=== PATIENT | female | born 1980 | race Hispanic/Latino ===

== ENCOUNTER → 2024-02-01 07:06 | Outpatient (REF) | payer OTHER, SELFPAY ==
[2024-02-01 08:00] LABS: ALT (SGPT) 18 U/L (0-35); AST (SGOT) 19 U/L (14-36); Albumin 4.5 g/dl (3.5-5.0); Alkaline Phosphatase 80 U/L (38-126); Blood Urea Nitrogen 18 mg/dl (7-17); Calcium 9.5 mg/dl (8.4-10.2); Carbon Dioxide 24 mmol/L (22-30); Chloride 105 mmol/L (98-107); Glucose 105 mg/dl (70-99); Potassium 4.7 mmol/L (3.5-5.1); Sodium 141 mmol/L (135-145); Total Bilirubin 0.3 mg/dl (0.2-1.3); Total Protein 7.3 g/dl (6.3-8.2); eGFR > 60.00
[2024-02-01 08:15] LABS: Vitamin D, 25-OH*** 28.8 ng/mL (30-80)
[2024-02-01 08:28] LABS: TSH Reflex To Free T4 2.94 uIU/ml (0.47-4.68)
[2024-02-01 09:08] LABS: Hematocrit 38.5 % (37.0-47.0); Hemoglobin 13.3 g/dL (12.0-16.0); Mean Corp Hgb Conc. 34.5 g/dL (33.0-37.0); Mean Corpuscular Volume 84.1 fL (81.0-99.0); Mean Platelet Volume 10.3 fL (7.4-10.4); Platelet Count 324 10^3/uL (130-400); Red Blood Cell Count 4.58 10^6/uL (4.20-5.40); Red Cell Dist. Width 13.5 % (11.5-14.5); White Blood Cell Count 8.9 10^3/uL (4.8-10.8)
== END ==
LOC: CLINIC 07:06
PROVIDERS: ATTENDING PHYSICIAN Nurse Practitioner Adult Health
DX: K59.09 Other constipation (principal); E05.00 Thyrotoxicosis with diffuse goiter without thyrotoxic crisis or storm; E55.9 Vitamin D deficiency, unspecified
CPT/HCPCS: 36415; 80053; 82306; 84443; 85027

== ENCOUNTER 2025-01-07 14:31 | Emergency (ER) | payer SELFPAY ==
[2025-01-07 14:36] VITALS: BP 146/98
[2025-01-07 15:16] LABS: Hematocrit 41.8 % (37.0-47.0); Hemoglobin 14.0 g/dL (12.0-16.0); Mean Corp Hgb Conc. 33.5 g/dL (33.0-37.0); Mean Corpuscular Volume 88.0 fL (81.0-99.0); Nucleated Red Blood Cells % 0 %; Platelet Count 322 10^3/uL (130-400); Red Cell Dist. Width 13.2 % (11.5-14.5)
[2025-01-07 15:18] LABS: Urine Character Clear (Clear)
[2025-01-07 15:25] LABS: HCG, Serum Qualitative Screen Negative
[2025-01-07 15:35] LABS: ALT (SGPT) 17 U/L (0-35); AST (SGOT) 18 U/L (14-36); Albumin 4.7 g/dl (3.5-5.0); Alkaline Phosphatase 76 U/L (38-126); Blood Urea Nitrogen 15 mg/dl (7-17); Calcium 9.5 mg/dl (8.4-10.2); Carbon Dioxide 21 mmol/L (22-30); Chloride 108 mmol/L (98-107); Glucose 100 mg/dl (70-99); Potassium 4.4 mmol/L (3.5-5.1); Sodium 139 mmol/L (135-145); Total Protein 8.0 g/dl (6.3-8.2); eGFR > 60.00
[2025-01-07 16:17] LABS: Urine Red Blood Cell 0-2 /HPF (0-2); Urine White Cell 0-2 /HPF (0-5)
--- NOTE | 2025-01-07 18:13 | ED.GENMED ---
History of Present Illness
General
Chief Complaint: Abdominal Pain
Time Seen by Provider: 01/07/25 18:13
History of Present Illness
History of Present Illness:
FOCUSED PAST MEDICAL HISTORY
- Thyroid disease
REVIEW OF OLD RECORDS
- No old records available for review in [facility]
Note:
CHIEF COMPLAINT(S)
Swelling and rash with associated pain.
HISTORY OF PRESENT ILLNESS
The patient is a 44-year-old female presenting with swelling, rash, and pain. The symptoms have reportedly worsened despite taking medication for inflammation in the past. The patient describes the swelling as occurring at the wrist, face, and back,
accompanied by itchiness. Additionally, she reports vomiting and diarrhea. She has noticed redness on her left wrist and has unspecified cold sensations. She was accompanied to the facility by a executive director who will also assist with transport home.
ADDITIONAL HISTORY OBTAINED FROM SOURCES OTHER THAN THE PATIENT
The patients executive director provided transportation to the medical facility.
SOCIAL DETERMINANTS AFFECTING HEALTH
The patient states she was accompanied to the appointment today and her executive director will help with transportation home if needed.
PHYSICAL EXAM
- General: Well appearing in no distress
- HEENT: Moist oral mucosa
- Cardiovascular: No murmurs, normal heart rate, regular rhythm, No chest wall tenderness
- Pulmonary: No respiratory distress, breath sounds are clear and equal
- Abdomen: Soft with no peritoneal signs, questionable if any diffuse tenderness, the abdomen is soft
- Neurologic: Excellent strength all extremities, no coordination deficits
- Psychiatric: Appropriate mental status, normal insight and judgement
- Extremities: Nontender, no edema, moves all extremities equally
- Skin: There is some patchy urticarial type of erythema noted over the distal left forearm, splotches over the back, and over the face
PROBLEM LIST
Acute:
1. Rash with accompanying swelling and itching.
2. Vomiting and diarrhea.
3. Pain likely due to inflammation.
PLAN
1. Administer diphenhydramine (Benadryl) for itchiness.
2. Provide ketorolac (Toradol) for inflammation-related pain.
3. Administer dexamethasone (Decadron) as a potent anti-inflammatory agent.
4. Initiate intravenous fluids.
5. Arrange for a computed tomography (CT) scan to evaluate the underlying cause of symptoms.
DIFFERENTIAL DIAGNOSIS
The Differential Diagnosis includes, in no particular order and is not limited to:
1. Allergic reaction
2. Autoimmune disorder
3. Infection-related rash
4. Dermatitis
5. Contact dermatitis
6. Viral exanthem
7. Urticaria
8. Angioedema
9. Gastroenteritis
10. Thyroid-related conditions
RADIOLOGY
- CT imaging obtained which I personally reviewed and agree with radiologist interpretation there is a ruptured left ovarian cyst which is small
LABS
- White count 14.1, normal renal function, normal transaminases, hCG negative, urinalysis shows blood but normal number of RBCs and WBCs
UPDATE
-SUMMARY OF ENCOUNTER
The patient is a 44-year-old female who presented to the emergency department with symptoms of swelling, rash, and pain, which have progressively worsened. The rash and swelling are noted on the wrist, face, and back, accompanied by itchiness,
vomiting, and diarrhea. The patient was managed with an anti-inflammatory regimen that includes administration of diphenhydramine for itchiness and ketorolac for pain relief, complemented by dexamethasone for its potent anti-inflammatory effects.
REASSESSMENT
On reassessment, the patient appears fairly comfortable. Further evaluation through a CT scan identified signs of a small ruptured ovarian cyst on the left side, identified as the likely cause of her pain.
PLAN
1. Contact information for a local coal wheeler will be provided to the patient for follow-up regarding the ovarian cyst.
2. Steroids will be added as a further anti-inflammatory agent to manage the rash and associated symptoms.
INDEPENDENT REVIEW OF LABS AND INTERPRETATION OF TESTS
My independent CT scan interpretation indicates signs of a small ruptured ovarian cyst on the left side.
FOLLOW-UP INSTRUCTIONS
The patient is advised to follow up with a local coal wheeler for further evaluation and management of the ovarian cyst.
MEDICATION RECONCILIATION
1. Diphenhydramine was administered for itchiness.
2. Ketorolac was provided for inflammation-related pain.
3. Dexamethasone was administered as a potent anti-inflammatory agent.
4. Prescription for additional steroids for further anti-inflammatory treatment.
MEDICAL DECISION MAKING
- Complexity of Data Reviewed: Chronic conditions affecting care include rash with swelling and itching, vomiting and diarrhea. Differential diagnosis includes allergic reactions, autoimmune disorders, infection-related rash, dermatitis, contact
dermatitis, viral exanthem, urticaria, angioedema, gastroenteritis, and thyroid-related conditions.
- Data:
- Category 1: The CT scan independently interpreted, indicating a small ruptured ovarian cyst as the likely cause of pain.
- Category 2: Clinical information was obtained from the patients executive director, who provided additional history and context.
- Risk: Prescription drug management initiated with the planned addition of steroids for inflammation control.
DIAGNOSIS
1. Rash with swelling and itching, possibly due to allergic reaction or dermatitis (L50.9).
2. Small ruptured ovarian cyst on the left side (N83.21).
Phy Exam
Physical Exam
Physical Exam:
See HPI
Course
Orders/Labs/Results
Orders:
Orders
01/07/25 14:41
Test Result ONCE
01/07/25 14:44
Complete Blood Count/With Diff Urgent
Comprehensive Metabolic Panel Urgent
HCG, Serum Qualitative Screen Urgent
Urinalysis Reflex To Culture Urgent
Date Specimen was Collected: 01/07/25
Time Specimen was Collected: 14:41
Urine Microscopic Reflex Cult Urgent
01/07/25 18:14
CT Abd/pelvis W Iv Cont Urgent
Comment:
Reason For Exam: WBC 14, worsening abd pain
01/07/25 18:27
0.9% Sodium Chloride 1000 ml [Nss] 1,000 ml IV BOLUS
Dexamethasone Sod Phosphate [Decadron] 10 mg IV NOW STA
Diphenhydramine [Benadryl] 25 mg IV NOW STA
Ketorolac [Toradol] 15 mg IV NOW STA
Abnormal Lab Results
01/07/25
14:44
WBC 14.1 H 10^3/uL
(4.8-10.8)
Absolute Neuts (auto) 10.2 H 10^3/uL
(1.4-6.5)
Chloride 108 H mmol/L
(98-107)
Carbon Dioxide 21 L mmol/L
(22-30)
Creatinine 0.5 L mg/dL
(0.6-1.0)
Glucose 100 H mg/dl
(70-99)
Urine Ketones 1+ A
(Negative)
Ur Occult Blood Reflex 3+ A
(Negative)
Urine Bacteria (Reflex) Few A
(Negative)
01/07/25 14:44
01/07/25 14:44
Vital Signs
Initial and Last Documented VS:
Initial Vital Signs
Temp Pulse Resp BP Pulse Ox
36.8 C 63 18 146/98 99
01/07/25 14:36 01/07/25 14:36 01/07/25 14:36 01/07/25 14:36 01/07/25 14:36
Last Documented Vital Signs
Temp Pulse Resp BP Pulse Ox
36.8 C 63 18 134/75 100
01/07/25 14:36 01/07/25 14:36 01/07/25 14:36 01/07/25 18:26 01/07/25 18:26
*Pulse Oximetry
SaO2: 99
Oxygen Mode of Delivery: Room air
Patient hypoxic: no
*Critical Care Note
Total Time (30-74mins, 75-104mins- exclusive of procedures): Not Applicable
ED Attending Note
-
Portions of this chart may have been created with voice recognition software.� Occasional wrong word or��sound alike� substitutions may have occurred due to the inherent limitations of voice recognition software.
Discharge Plan
Departure
Patient Disposition: Home (Routine Discharge)
Date of Disposition: 01/07/25
Time of Disposition: 19:45
Patient with high blood pressure during this ER visit?: Yes
Discharge Problem:
Abdominal pain
Instructions: Ovarian Cyst (DC), Abdominal Pain, BLOOD PRESSURE
Prescriptions:
New
prednisone 50 mg tablet
50 mg PO DAILY Qty: 4 0RF
Referrals:
Vaishnavi Upton MD [Active, Gynecology]
NONE,* [Family Provider, Internal Medicine]
Activity Restrictions/Additional Instructions:
Tu an�lisis de gardenia mostr� un recuento alto de gl�bulos blancos, flora la tomograf�a computarizada no muestra signos de infecci�n. S� muestra un jong�o quiste ov�rico roto en el lado ora. Normalmente, recomendar�a Motrin para ayudar a
reducir la inflamaci�n, flora te estoy recetando esteroides para tratar la erupci�n cut�lydia. Centuria tambi�n te ayudar� con la inflamaci�n. Tambi�n podr�as consultar con un ginec�logo adolph el Dr. Upton.
Interventions
Interventions:
*Risk Screen - Suicide Last Done: 01/07/25 14:31
*General Assessment Last Done: 01/07/25 14:36
*Neglect/Abuse Screening Last Done: 01/07/25 18:16
*ED- Fall Risk Assessment Last Done: 01/07/25 17:24
*ED COVID-19 Vaccine History Last Done: 01/07/25 17:24
*ED Influenza Vaccine History Last Done: 01/07/25 17:24
MO-Emymii-Vydxikxdcm Assessment Last Done: 01/07/25 17:38
Discharge Date and Time
Print Language: [place]
[2025-01-07 18:26] VITALS: BP 134/75
[2025-01-07] MEDS: DECADRON 10 MG IV (18:29)
[2025-01-07] MEDS: BENADRYL 25 MG IV (18:30)
[2025-01-07] MEDS: TORADOL 15 MG IV (18:30)
[2025-01-07] MEDS: NSS 1000 IV (18:30)
== END 2025-01-07 20:04 | disposition home or self-care (01) ==
LOC: EMR 14:31
PROVIDERS: EMERGENCY PHYSICIAN Emergency Medicine
DX: R10.9 Unspecified abdominal pain (principal); N83.12 Corpus luteum cyst of left ovary
CPT/HCPCS: 99284; 96374; 96375 ×2; 96361; 74177; 80053; 81003; 81015; 84703; 85025; Q9967

== ENCOUNTER → 2025-02-05 06:24 | Outpatient (REF) | payer OTHER, SELFPAY ==
[2025-02-05 07:47] LABS: Hematocrit 37.4 % (37.0-47.0); Hemoglobin 12.6 g/dL (12.0-16.0); Mean Corp Hgb Conc. 33.7 g/dL (33.0-37.0); Mean Corpuscular Volume 84.8 fL (81.0-99.0); Platelet Count 336 10^3/uL (130-400); Red Cell Dist. Width 13.6 % (11.5-14.5)
[2025-02-05 08:25] LABS: ALT (SGPT) 16 U/L (0-35); AST (SGOT) 16 U/L (14-36); Albumin 4.2 g/dl (3.5-5.0); Alkaline Phosphatase 61 U/L (38-126); Blood Urea Nitrogen 18 mg/dl (7-17); Calcium 8.9 mg/dl (8.4-10.2); Carbon Dioxide 22 mmol/L (22-30); Chloride 107 mmol/L (98-107); Glucose 85 mg/dl (70-99); HDL Cholesterol 50 mg/dl; LDL Cholesterol, Calculated 97 mg/dl; Potassium 4.0 mmol/L (3.5-5.1); Sodium 136 mmol/L (135-145); Total Protein 7.2 g/dl (6.3-8.2); Very Low Density Lipoprotein 17 mg/dl (0-30); eGFR > 60.00
[2025-02-05 08:39] LABS: Vitamin D, 25-OH*** 29.3 ng/mL (30-80)
== END ==
LOC: CLINIC 06:24
PROVIDERS: ATTENDING PHYSICIAN Nurse Practitioner Adult Health
DX: E05.00 Thyrotoxicosis with diffuse goiter without thyrotoxic crisis or storm (principal)
CPT/HCPCS: 36415; 80053; 80061; 82306; 83013; 84443; 85027